=== PATIENT | female | born 1970 | race Hispanic/Latino ===

== ENCOUNTER 2021-09-15 22:52 | Emergency (ER) | payer OTHER, SELFPAY ==
[2021-09-15 23:17] LABS: Bilirubin Neg (Negative); Blood, Urine 10 (Negative); Clarity Slightly Cloudy (Clear); Glucose, Urine (Dipstick) Normal (Negative); Ketone, Urine Negative (Negative); Leukocyte 500 (Negative); Nitrite Negative (Negative); Protein, Urine (Dipstick) Negative (Neg-Trace); Specific Gravity, Urine 1.005 (1.002-1.036); Urobilinogen Normal mg/dL (Less than 2)
[2021-09-15 23:25] LABS: RBC/HPF 0-3 HPF (0-3); Squamous Epithelial 0-3 HPF (0-3)
[2021-09-15 23:26] LABS: Bacteria/HPF 1+ HPF (None Seen)
== END 2021-09-16 01:03 | disposition home or self-care (01) ==
LOC: CSHERS 22:52
DX: N30.00 Acute cystitis without hematuria (principal); N32.89 Other specified disorders of bladder
CPT/HCPCS: 81003; 81015; 99283